=== PATIENT | male | born 1960 | race Caucasian/White ===

== ENCOUNTER 2021-01-08 14:29 | Emergency (ER) | payer OTHER ==
[2021-01-08 14:49] VITALS: BP 152/90; PULSE 60; TEMP 98.1; BMI 23.7
[2021-01-08] MEDS ORDERED: KETOROLAC TROMETHAMINE 60 MG/2 ML VIAL IM ONE (16:11)
[2021-01-08] MEDS ORDERED: KETOROLAC TROMETHAMINE 60 MG/2 ML VIAL ONE (16:26)
== END 2021-01-08 17:06 | disposition home or self-care (01) ==
LOC: JERFT 14:29
PROC: 3E0233Z Introduction of Anti-inflammatory into Muscle, Percutaneous Approach (ICD-10-PCS; principal; 2021-01-08)
DX: M54.5 Low back pain (principal)
CPT/HCPCS: 99284-25